=== PATIENT | female | born 1995 | race African-American/Black ===

== ENCOUNTER 2016-10-25 10:51 | Emergency (ER) | payer OTHER ==
[~2016-10-25] VITALS: Ht 170.2 cm; Wt 47.6 kg
[2016-10-25 11:27] LABS: BASO % 1 % (0-3); EOS % 1 % (0-3); HEMATOCRIT 35.9 % (36.0-47.0); HEMOGLOBIN 11.2 g/dL (12.0-15.5); LYMPH # 1.7 x10^3/uL (1.0-4.8); LYMPH % 22 % (24-48); MEAN CORPUSCULAR HEMOGLOBIN 24 pg (25-35); MEAN CORPUSCULAR HGB CONC 31 g/dL (31-37); MEAN CORPUSCULAR VOLUME 77 fL (79-100); MONO % 5 % (0-9); NEUT % 71 % (31-73); PLATELET COUNT 144 x10^3/uL (140-400); RED BLOOD COUNT 4.65 x10^6/uL (3.50-5.40); RED CELL DISTRIBUTION WIDTH 20.5 % (11.5-14.5); WHITE BLOOD COUNT 7.5 x10^3/uL (4.0-11.0)
[2016-10-25 11:43] LABS: CALCIUM 9.1 mg/dL (8.5-10.1); CREATININE 0.7 mg/dL (0.6-1.0); GFR 129.1; POTASSIUM 3.8 mmol/L (3.5-5.1)
[2016-10-25 11:44] LABS: MAGNESIUM 1.9 mg/dL (1.8-2.4)
[2016-10-25 11:45] LABS: NEG OBC SER NEG; POS OBC SER POS
[2016-10-25] MEDS ORDERED: IV NORMAL SALINE 1000ML BAG 1,000 ML IV ONE (11:45)
[2016-10-25 11:55] LABS: CREATINE KINASE 78 U/L (26-192)
[2016-10-25 11:56] LABS: CKMB INDEX 0.6 % (0-4); CKMB MASS < 0.5 ng/mL (0.0-3.6)
--- NOTE | 2016-10-25 12:06 | RAD ---
EXAM: Chest, single view. HISTORY: Dizziness. COMPARISON: 04/14/2008. FINDINGS: A frontal view of the chest is obtained. There is no infiltrate, effusion or pneumothorax. The heart is normal in size. IMPRESSION: No acute pulmonary finding.
[2016-10-25 12:15] LABS: ANISOCYTOSIS MOD; HYPOCHROMIA PRESENT; PLT ESTIMATE ADEQUATE (ADEQUATE)
--- NOTE | 2016-10-25 12:17 | RAD ---
EXAM: Head CT without contrast. HISTORY: Syncope. TECHNIQUE: Computed tomographic images of the head were obtained without contrast. COMPARISON: None. FINDINGS: There is no acute or subacute extra-axial or intraparenchymal hemorrhage. There is no mass effect or midline shift. There is no hydrocephalus. The suggs-white matter differentiation pattern is intact. The visualized portions of the orbits, paranasal sinuses and mastoid air cells are unremarkable. No suspicious calvarial lesion is seen. IMPRESSION: No acute intracranial findings. PQRS Compliance Statement: One or more of the following individualized dose reduction techniques were utilized for this examination: 1. Automated exposure control 2. Adjustment of the mA and/or kV according to patient size 3. Use of iterative reconstruction technique
--- NOTE | 2016-10-25 12:41 | EKG ---
[facility] [address] [place] [address] Test Date: 2016-10-25 Test Time: 11:33:54 Pat Name: VIJYAA TIWARI Department: Room: Gender: F Nutrition Specialist: : 1995 Requested By: GALINA OLSEN Order Number: [id number] Reading MD: Denice Sanches Measurements Intervals [place] Rate: 77 P: 47 AR: 148 QRS: 73 QRSD: 80 T: 52 QT: 350 QTc: 398 Interpretive Statements SINUS RHYTHM NO SPECIFIC ECG ABNORMALITIES RI6.01 No previous ECG available for comparison Electronically Signed On 10-25-2016 19:29:51 CDT by Denice Sanches
[2016-10-25 12:48] LABS: BILIRUBIN,URINE NEGATIVE (NEG); GLUCOSE,URINE NEGATIVE (NEG); NITRITE,URINE NEGATIVE (NEG); PH,URINE 7.5; PROTEIN,URINE NEGATIVE (NEG-TRACE)
[2016-10-25 12:52] LABS: BARBITURATES NEG (NEG); BENZODIAZEPINES NEG (NEG); CANNABINOIDS POS (NEG); COCAINE NEG (NEG); ETHANOL, URINE NEG (NEG); METHADONE NEG (NEG); OPIATES NEG (NEG); PHENCYCLIDINE NEG (NEG)
[2016-10-25 13:03] LABS: BACTERIA,URINE 0 /HPF (0-FEW); RBC,URINE 0 /HPF (0-2); SQUAMOUS EPITHELIAL CELL,UR MOD /LPF
[2016-10-25 14:00] VITALS: BP 94/53
[2016-10-25] MEDS ORDERED: ACET-704 PO (14:17)
--- NOTE | 2016-10-25 14:17 | PHYS DOC ---
Past Medical History Past Medical History: No Pertinent History Past Surgical History: No Surgical History Alcohol Use: None Drug Use: Marijuana Adult General Chief Complaint Chief Complaint: SYNCOPE HPI HPI Patient is a 21 year old female who presents with a headache and a possible syncope episode. Patient states early this morning around midnight she woke up to a bad headache rated at 10 out of 10. Patient denies this pain being the worst in her life. Patient denies any nausea vomiting with this pain. She states she was able to sleep and woke up this morning again went to the cousin' s house and was told she fell face forward and was "out" for 5-10 minutes. Patient states she cannot remember any of these events. She states she hit her head on the ground when she fell. Patient denies any significant previous medical history. She states she is currently under a lot of stress. Denies any suicidal homicidal ideation. Review of Systems Review of Systems Constitutional: Denies fever or chills [] Eyes: Denies change in visual acuity, redness, or eye pain [] HENT: Denies nasal congestion or sore throat [] Respiratory: Denies cough or shortness of breath [] Cardiovascular: No additional information not addressed in HPI [] GI: Denies abdominal pain, nausea, vomiting, bloody stools or diarrhea [] : Denies dysuria or hematuria [] Musculoskeletal: Denies back pain or joint pain [] Integument: Denies rash or skin lesions [] Neurologic: headache, and possible syncope episode Endocrine: Denies polyuria or polydipsia [] psych:stress. Current Medications Current Medications Current Medications Medications (Trade) Dose Ordered Sig/[facility] Start Time Stop Time Status Last Admin Dose Admin Ketorolac Tromethamine (Toradol Im) 60 mg 1X ONCE 10/25/16 15:00 10/25/16 15:01 Sodium Chloride (Iv Sodium Chloride 0.9% 1000ml Bag) 1,000 ml @ 1,000 mls/hr 1X ONCE 10/25/16 11:45 10/25/16 12:44 DC 10/25/16 11:37 1,000 MLS/HR Allergies Allergies Allergies Coded Allergies Type Severity Reaction Last Updated Verified No Known Drug Allergies 10/25/16 No Physical Exam Physical Exam Constitutional: Well developed, well nourished, no acute distress, non-toxic appearance. [] HENT: Normocephalic, atraumatic, bilateral external ears normal, oropharynx moist, no oral exudates, nose normal. [] Eyes: PERRLA, EOMI, conjunctiva normal, no discharge. [] Neck: Normal range of motion, no tenderness, supple, no stridor. [] Cardiovascular:Heart rate regular rhythm, no murmur [] Lungs & Thorax: Bilateral breath sounds clear to auscultation [] Abdomen: Bowel sounds normal, soft, no tenderness, no masses, no pulsatile masses. [] Skin: Warm, dry, no erythema, no rash. [] Back: No tenderness, no CVA tenderness. [] Extremities: No tenderness, no cyanosis, no clubbing, ROM intact, no edema. [] Neurologic: Alert and oriented X 3, normal motor function, normal sensory function, no focal deficits noted. Cranial nerves II through XII intact Psychologic: Affect normal, judgement normal, mood normal. [] Current Patient Data Vital Signs Vital Signs Date Time Temp Pulse Resp B/P Pulse Ox O2 Delivery O2 Flow Rate FiO2 10/25/16 11:00 98.7 98 13 111/60 99 Room Air 98.7 Lab Values Laboratory Tests Test 10/25/16 11:20 10/25/16 12:27 White Blood Count 7.5x10^3/uL (4.0-11.0) Red Blood Count 4.65x10^6/uL (3.50-5.40) Hemoglobin 11.2g/dL (12.0-15.5) L Hematocrit 35.9% (36.0-47.0) L Mean Corpuscular Volume 77fL (79-100) L Mean Corpuscular Hemoglobin 24pg (25-35) L Mean Corpuscular Hemoglobin Concent 31g/dL (31-37) Red Cell Distribution Width 20.5% (11.5-14.5) H Platelet Count 144x10^3/uL (140-400) Neutrophils (%) (Auto) 71% (31-73) Lymphocytes (%) (Auto) 22% (24-48) L Monocytes (%) (Auto) 5% (0-9) Eosinophils (%) (Auto) 1% (0-3) Basophils (%) (Auto) 1% (0-3) Neutrophils # (Auto) 5.3x10^3uL (1.8-7.7) Lymphocytes # (Auto) 1.7x10^3/uL (1.0-4.8) Monocytes # (Auto) 0.4x10^3/uL (0.0-1.1) Eosinophils # (Auto) 0.1x10^3/uL (0.0-0.7) Basophils # (Auto) 0.0x10^3/uL (0.0-0.2) Platelet Estimate Adequate (ADEQUATE) Giant Platelets Present Hypochromasia Present Poikilocytosis Anisocytosis Mod Sodium Level 140mmol/L (136-145) Potassium Level 3.8mmol/L (3.5-5.1) Chloride Level 104mmol/L (98-107) Carbon Dioxide Level 25mmol/L (21-32) Anion Gap 11 (6-14) Blood Urea Nitrogen 7mg/dL (7-20) Creatinine 0.7mg/dL (0.6-1.0) Estimated GFR (Cockcroft-Gault) 129.1 Glucose Level 95mg/dL (70-99) Calcium Level 9.1mg/dL (8.5-10.1) Magnesium Level 1.9mg/dL (1.8-2.4) Creatine Kinase 78U/L (26-192) Creatine Kinase MB (Mass) < 0.5ng/mL (0.0-3.6) Creatine Kinase MB Relative Index 0.6% (0-4) Troponin I Quantitative < 0.017ng/mL (0.000-0.055) Serum Test, Qualitative Negative (NEG) Ethyl Alcohol Level < 10mg/dL (0-10) Urine Collection Type Void Urine Color Yellow Urine Clarity Clear Urine pH 7.5 Urine Specific [place] 1.020 Urine Protein Negativemg/dL (NEG-TRACE) Urine Glucose (UA) Negativemg/dL (NEG) Urine Ketones (Stick) Negativemg/dL (NEG) Urine Blood Negative (NEG) Urine Nitrite Negative (NEG) Urine Bilirubin Negative (NEG) Urine Urobilinogen Dipstick 1.0mg/dL (0.2 mg/dL) Urine Leukocyte Esterase Trace (NEG) Urine RBC 0/HPF (0-2) Urine WBC 1-4/HPF (0-4) Urine Squamous Epithelial Cells Mod/LPF Urine Bacteria 0/HPF (0-FEW) Urine Mucus Mod/LPF Urine Opiates Screen Neg (NEG) Urine Methadone Screen Neg (NEG) Urine Barbiturates Neg (NEG) Urine Phencyclidine Screen Neg (NEG) Urine Amphetamine/Methamphetamine Neg (NEG) Urine Benzodiazepines Screen Neg (NEG) Urine Cocaine Screen Neg (NEG) Urine Cannabinoids Screen Pos (NEG) Urine Ethyl Alcohol Neg (NEG) Laboratory Tests 10/25/16 11:20 Laboratory Tests 10/25/16 11:20 EKG EKG [] Radiology/Procedures Radiology/Procedures [] Course & Med Decision Making Course & Med Decision Making Pertinent Labs and Imaging studies reviewed. (See chart for details) Patient is in the ED to be evaluated for headache and a possible syncope episode. Her labs are negative. CT of the head is negative for any acute findings. Chest x-ray is negative for any acute findings. She states she is under a lot of stress which I recommended she follows up with a counselor . She was discharged with Tylenol 3 for her headache. She was provided a PCP for follow-up. She was provided return precautions and discharged in stable condition. Dragon Disclaimer Dragon Disclaimer This electronic medical record was generated, in whole or in part, using a voice recognition dictation system. Departure Departure Impression: Primary Impression: Headache Additional Impressions: Syncope Marijuana use Stress Disposition: 01 HOME, SELF-CARE Condition: STABLE Referrals: NO PCP (PCP) Follow-up with the doctor from the list provided as soon as you can Patient Instructions: General Headache Without Cause, Syncope Additional Instructions: You were seen for headache and possible syncope episode and stress. Establish care with a primary care doctor and follow-up. Follow-up with [facility] for stress. Come back to the ED if symptoms worsen. Scripts Acetaminophen With Codeine (Tylenol With Codeine #3 Tablet)1 Each Tablet1 Tab PO PRN Q6HRS PRN PAIN #20 TAB Prov:GALINA OLSEN APRN 10/25/16 Problem Qualifiers Primary Impression: Headache Headache type: unspecified Headache chronicity pattern: acute headache Intractability: not intractable Qualified Code: R51 - Headache Additional Impressions: Syncope Syncope type: unspecified Qualified Code: R55 - Syncope and collapse GALINA OLSEN APRN Oct 25, 2016 14:17
[2016-10-25] MEDS ORDERED: KETOROLAC TROMETHAMINE 60 MG/2 ML INJ. IM ONE (15:00)
== END 2016-10-25 14:20 | disposition home or self-care (01) ==
LOC: ER 10:51
DX: R51 Headache (principal); R55 Syncope and collapse; F12.10 Cannabis abuse, uncomplicated; F43.9 Reaction to severe stress, unspecified
CPT/HCPCS: 36415; 70450; 71010; 80048; 80305; 80320; 81001; 82553; 83735; 84484; 84703; 85007; 85027; 93005; 96360; 99285; J7030; G0480; G0481

== ENCOUNTER 2018-04-13 18:33 | Inpatient (IN) | payer SELFPAY ==
[~2018-04-13] VITALS: Ht 170.2 cm; Wt 44.0 kg
[~2018-04-13 18:33] MED LIST: ACET-704 PO
[2018-04-13] MEDS ORDERED: IV NORMAL SALINE 1000ML BAG 1,000 ML IV ONE ×2 (18:45→20:45)
[2018-04-13] MEDS ORDERED: diphenhydrAMINE 50 MG/ML VIAL IVP ONE (19:00)
[2018-04-13] MEDS ORDERED: METOCLOPRAMIDE HCL 10 MG/2 ML VIAL. IV ONE (19:00)
[2018-04-13] MEDS ORDERED: DEXAMETHASONE SOD PHOS 20 MG/5 ML VIAL. IV ONE (19:00)
--- NOTE | 2018-04-13 19:07 | PHYS DOC ---
Past Medical History Past Medical History: No Pertinent History Past Surgical History: No Surgical History Alcohol Use: None Drug Use: Marijuana Adult General Chief Complaint Chief Complaint: HEADACHE HPI HPI Patient is a 22 year old female who presents with generalized weakness and headache. Patient notes about 45 minutes ago she was talking with a friend at home when she started feeling weak and lightheaded. Patient denies syncope, fall , or hitting her head. Patient notes she feels generalized weakness predominantly in her bilateral lower extremities. Patient notes she has had a moderate in severity bilateral throbbing frontal headache since about noon today. Patient notes this headache was gradual in onset and similar to the headache she has had in the past. Patient notes she did have some nausea since the onset of symptoms. Patient notes she has not had any fevers/chills, recent illness, vomiting, diarrhea, abdominal pain, chest pain, shortness of breath. Patient notes she does not think she could be . Patient notes she was not outside for any extended period of time today and denies any alcohol or drug use. Patient notes she has had a normal appetite and drank a normal amount of fluids. Review of Systems Review of Systems Constitutional: Denies fever or chills [] Eyes: Denies change in visual acuity, redness, or eye pain [] HENT: Denies nasal congestion or sore throat [] Respiratory: Denies cough or shortness of breath [] Cardiovascular: Denies chest pain or palpitations [] GI: Denies abdominal pain, vomiting, bloody stools or diarrhea [] : Denies dysuria or hematuria [] Musculoskeletal: Denies back pain, notes chronic knee joint pain [] Integument: Denies rash or skin lesions [] Neurologic: Denies headache. Denies focal weakness or sensory changes [] systems were reviewed and found to be within normal limits, except as documented in this note. Family History Family History Noncontributory Current Medications Current Medications Current Medications Medications (Trade) Dose Ordered Sig/Kaitlyn Start Time Stop Time Status Last Admin Dose Admin Dexamethasone Sodium Phosphate (Decadron) 10 mg 1X ONCE 04/13/18 19:00 04/13/18 19:01 DC 04/13/18 19:56 10 MG Diphenhydramine HCl (Benadryl) 25 mg 1X ONCE 04/13/18 19:00 04/13/18 19:01 DC 04/13/18 19:53 25 MG Metoclopramide HCl (Reglan Vial) 10 mg 1X ONCE 04/13/18 19:00 04/13/18 19:01 DC 04/13/18 19:54 10 MG Sodium Chloride 1,000 ml @ 1,000 mls/hr 1X ONCE 04/13/18 18:45 04/13/18 19:44 DC 04/13/18 19:44 1,000 MLS/HR Allergies Allergies Allergies Coded Allergies Type Severity Reaction Last Updated Verified No Known Drug Allergies 10/25/16 No Physical Exam Physical Exam Constitutional: Well developed, well nourished, no acute distress, non-toxic appearance. [] HENT: Normocephalic, atraumatic, bilateral external ears normal, oropharynx dry , no oral exudates, nose normal. [] Eyes: PERRL, EOMI, conjunctiva normal, no discharge. [] Neck: Normal range of motion, no tenderness, supple, no meningismus. [] Cardiovascular:Heart rate regular rhythm, no murmur [] Lungs & Thorax: Bilateral breath sounds clear to auscultation [] Abdomen: Bowel sounds normal, soft, nondistended, no tenderness [] Skin: Warm, dry, no erythema, no rash. [] Back: No tenderness, no CVA tenderness. [] Extremities: Chronic tenderness in b/l anterior knees, ROM intact, no edema. [] Neurologic: Alert and oriented X 3, +3/5 muscle strength in bilateral lower extremities, +5/5 muscle strength bilateral upper extremities, normal sensory function. [] Psychologic: Affect subdued, judgement normal, mood normal. [] Current Patient Data Vital Signs Vital Signs Date Time Temp Pulse Resp B/P (MAP) Pulse Ox O2 Delivery O2 Flow Rate FiO2 04/13/18 19:50 70 16 99 04/13/18 18:50 98.4 111/67 (82) Room Air 98.4 Lab Values Laboratory Tests Test 04/13/18 19:05 04/13/18 19:45 04/13/18 20:00 White Blood Count 7.8 x10^3/uL (4.0-11.0) Red Blood Count 4.41 x10^6/uL (3.50-5.40) Hemoglobin 10.4 g/dL (12.0-15.5) L Hematocrit 32.3 % (36.0-47.0) L Mean Corpuscular Volume 73 fL (79-100) L Mean Corpuscular Hemoglobin 24 pg (25-35) L Mean Corpuscular Hemoglobin Concent 32 g/dL (31-37) Red Cell Distribution Width 21.9 % (11.5-14.5) H Platelet Count 199 x10^3/uL (140-400) Neutrophils (%) (Auto) 72 % (31-73) Lymphocytes (%) (Auto) 22 % (24-48) L Monocytes (%) (Auto) 6 % (0-9) Eosinophils (%) (Auto) 0 % (0-3) Basophils (%) (Auto) 0 % (0-3) Neutrophils # (Auto) 5.6 x10^3uL (1.8-7.7) Lymphocytes # (Auto) 1.7 x10^3/uL (1.0-4.8) Monocytes # (Auto) 0.5 x10^3/uL (0.0-1.1) Eosinophils # (Auto) 0.0 x10^3/uL (0.0-0.7) Basophils # (Auto) 0.0 x10^3/uL (0.0-0.2) Platelet Estimate Adequate (ADEQUATE) Hypochromasia Slight Microcytosis Slight Sodium Level 139 mmol/L (136-145) Potassium Level 3.3 mmol/L (3.5-5.1) L Chloride Level 102 mmol/L (98-107) Carbon Dioxide Level 25 mmol/L (21-32) Anion Gap 12 (6-14) Blood Urea Nitrogen 9 mg/dL (7-20) Creatinine 0.7 mg/dL (0.6-1.0) Estimated GFR (Cockcroft-Gault) 127.8 BUN/Creatinine Ratio 13 (6-20) Glucose Level 80 mg/dL (70-99) Calcium Level 9.3 mg/dL (8.5-10.1) Magnesium Level 2.3 mg/dL (1.8-2.4) Total Bilirubin 0.4 mg/dL (0.2-1.0) Aspartate Amino Transferase (AST) 34 U/L (15-37) Alanine Aminotransferase (ALT) 19 U/L (14-59) Alkaline Phosphatase 68 U/L (46-116) Creatine Kinase 1680 U/L (26-192) H Troponin I Quantitative < 0.017 ng/mL (0.000-0.055) Total Protein 8.5 g/dL (6.4-8.2) H Albumin 4.0 g/dL (3.4-5.0) Albumin/Globulin Ratio 0.9 (1.0-1.7) L Ethyl Alcohol Level < 10 mg/dL (0-10) Urine Collection Type Unknown Urine Color Yellow Urine Clarity Clear Urine pH 5.5 Urine Specific [place] >=1.030 Urine Protein 30 mg/dL (NEG-TRACE) Urine Glucose (UA) Negative mg/dL (NEG) Urine Ketones (Stick) 40 mg/dL (NEG) Urine Blood Negative (NEG) Urine Nitrite Negative (NEG) Urine Bilirubin Small (NEG) Urine Urobilinogen Dipstick 1.0 mg/dL (0.2 mg/dL) Urine Leukocyte Esterase Small (NEG) Urine RBC Rare /HPF (0-2) Urine WBC 1-4 /HPF (0-4) Urine Squamous Epithelial Cells Many /LPF Urine Bacteria Few /HPF (0-FEW) Urine Mucus Marked /LPF Urine Opiates Screen Neg (NEG) Urine Methadone Screen Neg (NEG) Urine Barbiturates Neg (NEG) Urine Phencyclidine Screen Neg (NEG) Urine Amphetamine/Methamphetamine Neg (NEG) Urine Benzodiazepines Screen Neg (NEG) Urine Cocaine Screen Neg (NEG) Urine Cannabinoids Screen Pos (NEG) Urine Ethyl Alcohol Neg (NEG) POC Urine HCG, Qualitative Hcg negative (Negative) Laboratory Tests 04/13/18 19:05 Laboratory Tests 04/13/18 19:05 Microbiology 04/13/18 Urine Culture - Final, Complete 04/13/18 Urine Culture Result 1 (DAVEY) - Final, Complete 04/13/18 Urine Culture Result 2 (DAVEY) - Final, Complete EKG EKG Sinus rhythm normal axis mild J-point elevation in anterior leads, unchanged from prior EKG (10/25/16). No acute ischemic changes noted. Rate 87, QRS 74, QTc 393[] Radiology/Procedures Radiology/Procedures []PROCEDURE: CT HEAD WO CONTRAST CT scan of the head without contrast 04/13/2018 Clinical History: Headache and weakness. Technique: Unenhanced, contiguous, 5 mm axial sections were obtained through the head. One or more of the following individualized dose reduction techniques were utilized for this study: 1. Automated exposure control. 2. Adjustment of the mA and/or kV according to patient size. 3. Use of iterative reconstruction technique. Findings: Comparison study is dated 10/25/2016. The ventricles and sulci are within normal limits in size and configuration. No focal area of abnormal attenuation is seen involving the brain parenchyma. No extra-axial fluid collection is seen. No skull fracture is seen. Impression: Negative study. Electronically signed by: Kartik Sagastume MD (04/13/2018 8:35 PM) [facility] Course & Med Decision Making Course & Med Decision Making 22-year-old female presenting with acute onset generalized weakness, lightheadedness, and headache. Headache was gradual in onset, bilateral and throbbing. Patient denies alcohol or drug use. Patient given Decadron, Benadryl , Reglan with relief of headache. Patient given 2 L normal saline bolus. Labs collected and evaluated. Significant findings include elevated creatinine kinase at 1680, ketones 40 on UA, hypokalemia 3.3. Labs suspicious for rhabdomyolysis cannot rule out neurologic cause for weakness. CT head obtained and does not show any intracranial abnormality. Patient requiring admission for further evaluation and treatment. Discussed with Dr. Ko who is in agreement with admission. Discussed findings and plan with patient, who acknowledge understanding and agreement. [] Dragon Disclaimer Dragon Disclaimer This electronic medical record was generated, in whole or in part, using a voice recognition dictation system. Departure Departure Impression: Primary Impression: Bilateral leg weakness Additional Impressions: Elevated creatine kinase Headache Disposition: ADMITTED INPATIENT Admitting Physician: Umu Ko Condition: STABLE Referrals: NO PCP (PCP) Scripts Ferrous Sulfate (FERROUS SULFATE) 325 Mg Tablet 1 TAB PO DAILY, #30 TAB 1 Refill Prov: UMU KO MD 04/15/18 Cyanocobalamin/Fa/Pyridoxine (FOLBIC TABLET) 1 Each Tablet 1 TAB PO DAILY, #100 TAB Prov: UMU KO MD 04/15/18 Gabapentin (GABAPENTIN) 300 Mg Capsule 300 MG PO BID, #60 CAP Prov: UMU KO MD 04/15/18 Problem Qualifiers Additional Impressions: Headache Headache type: unspecified Headache chronicity pattern: unspecified pattern Intractability: not intractable Qualified Codes: R51 - Headache LARISA WALL DO Apr 13, 2018 19:07
[2018-04-13 19:15] LABS: BASO % 0 % (0-3); EOS % 0 % (0-3); HEMATOCRIT 32.3 % (36.0-47.0); HEMOGLOBIN 10.4 g/dL (12.0-15.5); LYMPH # 1.7 x10^3/uL (1.0-4.8); LYMPH % 22 % (24-48); MEAN CORPUSCULAR HEMOGLOBIN 24 pg (25-35); MEAN CORPUSCULAR HGB CONC 32 g/dL (31-37); MEAN CORPUSCULAR VOLUME 73 fL (79-100); MONO # 0.5 x10^3/uL (0.0-1.1); MONO % 6 % (0-9); NEUT # 5.6 x10^3uL (1.8-7.7); NEUT % 72 % (31-73); PLATELET COUNT 199 x10^3/uL (140-400); RED BLOOD COUNT 4.41 x10^6/uL (3.50-5.40); RED CELL DISTRIBUTION WIDTH 21.9 % (11.5-14.5); WHITE BLOOD COUNT 7.8 x10^3/uL (4.0-11.0)
[2018-04-13 19:30] LABS: CALCIUM 9.3 mg/dL (8.5-10.1); CREATININE 0.7 mg/dL (0.6-1.0); GFR 127.8; HYPOCHROMIA SLIGHT; MICROCYTOSIS SLIGHT; PLT ESTIMATE ADEQUATE (ADEQUATE); POTASSIUM 3.3 mmol/L (3.5-5.1)
[2018-04-13 19:45] LABS: ALBUMIN/GLOBULIN RATIO 0.9 (1.0-1.7); MAGNESIUM 2.3 mg/dL (1.8-2.4); TOTAL BILIRUBIN 0.4 mg/dL (0.2-1.0); TOTAL PROTEIN 8.5 g/dL (6.4-8.2)
--- NOTE | 2018-04-13 19:54 | EKG ---
[facility] [address] [place] [address] Test Date: 2018-04-13 Test Time: 19:21:44 Pat Name: VIJAYA TIWARI Department: Room: Gender: Female Provider Contracting Consultant: : 1995 Requested By: LARISA WALL Order Number: [id number] Reading MD: Say Lopez Measurements Intervals [place] Rate: 77 P: 58 [place]: 160 QRS: 75 QRSD: 74 T: 60 QT: 346 QTc: 393 Interpretive Statements SINUS RHYTHM QRS(T) CONTOUR ABNORMALITY CONSIDER ANTEROLATERAL MYOCARDIAL DAMAGE POSSIBLY ABNORMAL ECG RI6.01 Electronically Signed On 04-19-2018 10:16:50 CDT by Say Lopez
[2018-04-13 20:08] LABS: BILIRUBIN,URINE SMALL (NEG); COLOR,URINE YELLOW; NITRITE,URINE NEGATIVE (NEG); PH,URINE 5.5; PROTEIN,URINE 30 mg/dL (NEG-TRACE)
[2018-04-13 20:12] LABS: CLARITY,URINE CLEAR
[2018-04-13 20:14] LABS: AMPHETAMINE/METHAMPHETAMINE NEG (NEG); BARBITURATES NEG (NEG); BENZODIAZEPINES NEG (NEG); CANNABINOIDS POS (NEG); COCAINE NEG (NEG); METHADONE NEG (NEG); OPIATES NEG (NEG); PHENCYCLIDINE NEG (NEG)
[2018-04-13 20:16] LABS: BACTERIA,URINE FEW /HPF (0-FEW); RBC,URINE RARE /HPF (0-2); SQUAMOUS EPITHELIAL CELL,UR MANY /LPF
--- NOTE | 2018-04-13 20:39 | RAD ---
CT scan of the head without contrast 04/13/2018 Clinical History: Headache and weakness. Technique: Unenhanced, contiguous, 5 mm axial sections were obtained through the head. One or more of the following individualized dose reduction techniques were utilized for this study: 1. Automated exposure control. 2. Adjustment of the mA and/or kV according to patient size. 3. Use of iterative reconstruction technique. Findings: Comparison study is dated 10/25/2016. The ventricles and sulci are within normal limits in size and configuration. No focal area of abnormal attenuation is seen involving the brain parenchyma. No extra-axial fluid collection is seen. No skull fracture is seen. Impression: Negative study. Electronically signed by: Kartik Sagastume MD (04/13/2018 8:35 PM) [facility]
[2018-04-13] MEDS ORDERED: ACETAMINOPHEN 325 MG TABLET. PO PRN (20:45)
[2018-04-13] MEDS ORDERED: ONDANSETRON PF 4 MG/2 ML VIAL. IV PRN (20:45)
[2018-04-14 03:00] VITALS: BP 90/53
[2018-04-14 07:00] VITALS: BP 109/66
[2018-04-14] MEDS ORDERED: POTASSIUM CHLORIDE 20 MEQ TABLET.ER. PO ONE (08:15)
--- NOTE | 2018-04-14 08:40 | PDOC1 ---
History and Physical Date of Admission Date of Admission DATE: 04/14/18 TIME: 08:32 Source Source: Chart review, Patient History of Present Illness History of Present Illness Ms. Valadez is a 22 year old female admit with generalized weakness overnight and leg pain, sudden onset of weakness, bilateral legs and symmetrical, could walk some with assist last night, and now cannot get out of bed. had difficulty initiating transfer. Leg pain to knees, she reports this is not new, but some tingling and pain to her lower legs. she feels onset in gradual marked headache was described in ER, she did not mention today her last immunization was 7 months ago Past Medical History Cardiovascular: No pertinent hx Pulmonary: No pertinent hx Heme/Onc: No pertinent hx Renal/: No pertinent hx Dermatology: No pertinent hx Family History Family History: No Significant Social History Smoke: No ALCOHOL: none Drugs: Marijuana Current Problem List Problem List Problems Medical Problems: (1) Bilateral leg weakness Status: Acute (2) Elevated creatine kinase Status: Acute (3) Headache Status: Acute Current Medications Current Medications Current Medications Sodium Chloride 1,000 ml @ 1,000 mls/hr 1X ONCE IV Last administered on at 19:44; Start 04/13/18 at 18:45; Stop 04/13/18 at 19:44; Status DC Dexamethasone Sodium Phosphate (Decadron) 10 mg 1X ONCE IV Last administered on 04/13/18at 19:56; Start 04/13/18 at 19:00; Stop 04/13/18 at 19:01; Status DC Metoclopramide HCl (Reglan Vial) 10 mg 1X ONCE IV Last administered on at 19:54; Start 04/13/18 at 19:00; Stop 04/13/18 at 19:01; Status DC Diphenhydramine HCl (Benadryl) 25 mg 1X ONCE IVP Last administered on at 19:53; Start 04/13/18 at 19:00; Stop 04/13/18 at 19:01; Status DC Sodium Chloride 1,000 ml @ 1,000 mls/hr 1X ONCE IV Last administered on at 20:52; Start 04/13/18 at 20:45; Stop 04/13/18 at 21:44; Status DC Ondansetron HCl (Zofran) 4 mg PRN Q8HRS PRN IV NAUSEA/VOMITING; Start 04/13/18 at 20:45; Stop 04/14/18 at 20:44 Acetaminophen (Tylenol) 650 mg PRN Q4HRS PRN PO FEVER; Start 04/13/18 at 20:45 ; Stop 04/14/18 at 20:44 Potassium Chloride (Klor-Con) 40 meq 1X ONCE PO ; Start 04/14/18 at 08:15; Stop 04/14/18 at 08:16; Status DC Sodium Chloride 1,000 ml @ 125 mls/hr Q8H IV ; Start 04/14/18 at 08:30 Active Scripts Active Allergies Allergies: Coded Allergies: No Known Drug Allergies (Unverified , 10/25/16) ROS General: YES: Fatigue; No: Chills, Night Sweats, Malaise, Appetite, Other PSYCHOLOGICAL ROS: No: Anxiety, Behavioral Disorder, Concentration difficultie , Decreased libido, Depression, Disorientation, Hallucinations, Hostility, Irritablity, Memory difficulties, Mood Swings, Obsessive thoughts, Physical abuse, Sexual abuse, Sleep disturbances, Suicidal ideation, Other Eyes: No Blurry vision, No Decreased vision, No Double vision, No Dry eyes, No Excessive tearing, No Eye Pain, No Itchy Eyes, No Loss of vision, No Photophobia , No Scotomata, No Uses contacts, No Uses glasses, No Other HEENT: No: Heacaches, Visual Changes, Hearing change, Nasal congestion, Nasal discharge, Oral lesions, Sinus pain, Sore Throat, Epistaxis, Sneezing, Snoring, Tinnitus, Vertigo, Vocal changes, Other Respiratory: No: Cough, Hemoptysis, Orthopnea, Pleuritic Pain, Shortness of breath, SOB with excertion, Sputum Changes, Stridor, Tachypnea, Wheezing, Other Cardiovascular: No Chest Pain, No Palpitations, No Orthopnea, No Paroxysmal Noc. Dyspnea, No Edema, No Lt Headedness, No Other Gastrointestinal: No Nausea, No Vomiting, No Abdominal Pain, No Diarrhea, No Constipation, No Melena, No Hematochezia, No Other Musculoskeletal: Yes Gait Disturbance, Yes Joint Stiffness (knees), Yes Joint Swelling, Yes Muscular Weakness, Yes Pain In: (knees, ); No Joint Pain, No Muscle Pain, No Swelling In:, No Other Neurological: Yes Gait Disturbance; No Behavorial Changes, No Bowel/Bladder ControlChng, No Confusion, No Dizziness, No Headaches, No Impaired Coord/balance, No Memory Loss, No Numbness/ Tingling, No Seizures, No Speech Problems, No Tremors, No Visual Changes, No Weakness, No Other Skin: No Dry Skin, No Eczema, No Hair Changes, No Lumps, No Mole Changes, No Mottling, No Nail Changes, No Pruritus, No Rash, No Skin Lesion Changes, No Other, No Acne Physical Exam General: Alert, Oriented X3, Cooperative, mild distress HEENT: Atraumatic, EOMI, Mucous membr. moist/pink Lungs: Normal air movement Heart: S1S2, no gallops, no murmurs Abdomen: Normal bowel sounds, Soft PELVIC: Nml ext uterus Extremities: No clubbing, No cyanosis, No edema Skin: No rashes, No significant lesion Neuro: Normal speech, Sensation intact, Other (knee pain limits eval for reflexes ankle, ankle jerk maybe 1 beat, seems diminished, normal sensation to feet, to cold, pain and light touch, very limited leg strength, cannot stand) Psych/Mental Status: Mental status NL, Mood NL Vitals Vitals Vital Signs Date Time Temp Pulse Resp B/P (MAP) Pulse Ox O2 Delivery O2 Flow Rate FiO2 04/14/18 03:00 98.3 61 18 90/53 (65) 100 Room Air 98.3 Labs Labs Laboratory Tests Test 04/13/18 19:05 04/13/18 19:45 04/13/18 20:00 White Blood Count 7.8 x10^3/uL (4.0-11.0) Red Blood Count 4.41 x10^6/uL (3.50-5.40) Hemoglobin 10.4 g/dL (12.0-15.5) Hematocrit 32.3 % (36.0-47.0) Mean Corpuscular Volume 73 fL (79-100) Mean Corpuscular Hemoglobin 24 pg (25-35) Mean Corpuscular Hemoglobin Concent 32 g/dL (31-37) Red Cell Distribution Width 21.9 % (11.5-14.5) Platelet Count 199 x10^3/uL (140-400) Neutrophils (%) (Auto) 72 % (31-73) Lymphocytes (%) (Auto) 22 % (24-48) Monocytes (%) (Auto) 6 % (0-9) Eosinophils (%) (Auto) 0 % (0-3) Basophils (%) (Auto) 0 % (0-3) Neutrophils # (Auto) 5.6 x10^3uL (1.8-7.7) Lymphocytes # (Auto) 1.7 x10^3/uL (1.0-4.8) Monocytes # (Auto) 0.5 x10^3/uL (0.0-1.1) Eosinophils # (Auto) 0.0 x10^3/uL (0.0-0.7) Basophils # (Auto) 0.0 x10^3/uL (0.0-0.2) Platelet Estimate Adequate (ADEQUATE) Hypochromasia Slight Microcytosis Slight Sodium Level 139 mmol/L (136-145) Potassium Level 3.3 mmol/L (3.5-5.1) Chloride Level 102 mmol/L (98-107) Carbon Dioxide Level 25 mmol/L (21-32) Anion Gap 12 (6-14) Blood Urea Nitrogen 9 mg/dL (7-20) Creatinine 0.7 mg/dL (0.6-1.0) Estimated GFR (Cockcroft-Gault) 127.8 BUN/Creatinine Ratio 13 (6-20) Glucose Level 80 mg/dL (70-99) Calcium Level 9.3 mg/dL (8.5-10.1) Magnesium Level 2.3 mg/dL (1.8-2.4) Total Bilirubin 0.4 mg/dL (0.2-1.0) Aspartate Amino Transf (AST/SGOT) 34 U/L (15-37) Alanine Aminotransferase (ALT/SGPT) 19 U/L (14-59) Alkaline Phosphatase 68 U/L (46-116) Creatine Kinase 1680 U/L (26-192) Troponin I Quantitative < 0.017 ng/mL (0.000-0.055) Total Protein 8.5 g/dL (6.4-8.2) Albumin 4.0 g/dL (3.4-5.0) Albumin/Globulin Ratio 0.9 (1.0-1.7) Ethyl Alcohol Level < 10 mg/dL (0-10) Urine Collection Type Unknown Urine Color Yellow Urine Clarity Clear Urine pH 5.5 Urine Specific [place] >=1.030 Urine Protein 30 mg/dL (NEG-TRACE) Urine Glucose (UA) Negative mg/dL (NEG) Urine Ketones (Stick) 40 mg/dL (NEG) Urine Blood Negative (NEG) Urine Nitrite Negative (NEG) Urine Bilirubin Small (NEG) Urine Urobilinogen Dipstick 1.0 mg/dL (0.2 mg/dL) Urine Leukocyte Esterase Small (NEG) Urine RBC Rare /HPF (0-2) Urine WBC 1-4 /HPF (0-4) Urine Squamous Epithelial Cells Many /LPF Urine Bacteria Few /HPF (0-FEW) Urine Mucus Marked /LPF Urine Opiates Screen Neg (NEG) Urine Methadone Screen Neg (NEG) Urine Barbiturates Neg (NEG) Urine Phencyclidine Screen Neg (NEG) Urine Amphetamine/Methamphetamine Neg (NEG) Urine Benzodiazepines Screen Neg (NEG) Urine Cocaine Screen Neg (NEG) Urine Cannabinoids Screen Pos (NEG) Urine Ethyl Alcohol Neg (NEG) Bedside Urine HCG, Qualitative Hcg negative (Negative) Laboratory Tests Test 04/13/18 19:05 04/13/18 19:45 04/13/18 20:00 White Blood Count 7.8 x10^3/uL (4.0-11.0) Red Blood Count 4.41 x10^6/uL (3.50-5.40) Hemoglobin 10.4 g/dL (12.0-15.5) Hematocrit 32.3 % (36.0-47.0) Mean Corpuscular Volume 73 fL (79-100) Mean Corpuscular Hemoglobin 24 pg (25-35) Mean Corpuscular Hemoglobin Concent 32 g/dL (31-37) Red Cell Distribution Width 21.9 % (11.5-14.5) Platelet Count 199 x10^3/uL (140-400) Neutrophils (%) (Auto) 72 % (31-73) Lymphocytes (%) (Auto) 22 % (24-48) Monocytes (%) (Auto) 6 % (0-9) Eosinophils (%) (Auto) 0 % (0-3) Basophils (%) (Auto) 0 % (0-3) Neutrophils # (Auto) 5.6 x10^3uL (1.8-7.7) Lymphocytes # (Auto) 1.7 x10^3/uL (1.0-4.8) Monocytes # (Auto) 0.5 x10^3/uL (0.0-1.1) Eosinophils # (Auto) 0.0 x10^3/uL (0.0-0.7) Basophils # (Auto) 0.0 x10^3/uL (0.0-0.2) Platelet Estimate Adequate (ADEQUATE) Hypochromasia Slight Microcytosis Slight Sodium Level 139 mmol/L (136-145) Potassium Level 3.3 mmol/L (3.5-5.1) Chloride Level 102 mmol/L (98-107) Carbon Dioxide Level 25 mmol/L (21-32) Anion Gap 12 (6-14) Blood Urea Nitrogen 9 mg/dL (7-20) Creatinine 0.7 mg/dL (0.6-1.0) Estimated GFR (Cockcroft-Gault) 127.8 BUN/Creatinine Ratio 13 (6-20) Glucose Level 80 mg/dL (70-99) Calcium Level 9.3 mg/dL (8.5-10.1) Magnesium Level 2.3 mg/dL (1.8-2.4) Total Bilirubin 0.4 mg/dL (0.2-1.0) Aspartate Amino Transf (AST/SGOT) 34 U/L (15-37) Alanine Aminotransferase (ALT/SGPT) 19 U/L (14-59) Alkaline Phosphatase 68 U/L (46-116) Creatine Kinase 1680 U/L (26-192) Troponin I Quantitative < 0.017 ng/mL (0.000-0.055) Total Protein 8.5 g/dL (6.4-8.2) Albumin 4.0 g/dL (3.4-5.0) Albumin/Globulin Ratio 0.9 (1.0-1.7) Ethyl Alcohol Level < 10 mg/dL (0-10) Urine Collection Type Unknown Urine Color Yellow Urine Clarity Clear Urine pH 5.5 Urine Specific [place] >=1.030 Urine Protein 30 mg/dL (NEG-TRACE) Urine Glucose (UA) Negative mg/dL (NEG) Urine Ketones (Stick) 40 mg/dL (NEG) Urine Blood Negative (NEG) Urine Nitrite Negative (NEG) Urine Bilirubin Small (NEG) Urine Urobilinogen Dipstick 1.0 mg/dL (0.2 mg/dL) Urine Leukocyte Esterase Small (NEG) Urine RBC Rare /HPF (0-2) Urine WBC 1-4 /HPF (0-4) Urine Squamous Epithelial Cells Many /LPF Urine Bacteria Few /HPF (0-FEW) Urine Mucus Marked /LPF Urine Opiates Screen Neg (NEG) Urine Methadone Screen Neg (NEG) Urine Barbiturates Neg (NEG) Urine Phencyclidine Screen Neg (NEG) Urine Amphetamine/Methamphetamine Neg (NEG) Urine Benzodiazepines Screen Neg (NEG) Urine Cocaine Screen Neg (NEG) Urine Cannabinoids Screen Pos (NEG) Urine Ethyl Alcohol Neg (NEG) Bedside Urine HCG, Qualitative Hcg negative (Negative) VTE Prophylaxis Ordered VTE Prophylaxis Devices: No VTE Pharmacological Prophylaxi: Yes Assessment/Plan Assessment/Plan new bilateral leg tingling and weakness sudden onset yesterday, and appears weaker on exam than she described to be last night Admit, Urgent neuro consult new bilateral polyneuropathy with parathesia and pain to legs - symmetrical MRI spine, w.u AIDP, check viral x2, B1 and B12 vitamina, MATTHIEU KO MD Apr 14, 2018 08:40
[2018-04-14 09:47] LABS: C-REACTIVE PROTEIN 1.5 mg/L (0-3.3)
[2018-04-14] MEDS: IV NORMAL SALINE 1000ML BAG 1,000 ML IV SCH ×3 (10:15→23:14)
[2018-04-14 11:00] VITALS: BP 95/59
[2018-04-14] MEDS: ENOXAPARIN 40 MG/0.4 ML SYRINGE. SQ SCH (11:00)
[2018-04-14] MEDS ORDERED: GADOBUTROL 7.5 MMOL/7.5 ML VIAL IV ONE (12:45)
--- NOTE | 2018-04-14 14:18 | RAD ---
EXAM: Brain MRI with and without contrast. HISTORY: Headaches and lower extremity weakness. TECHNIQUE: Multiplanar, multisequence magnetic resonance imaging of the brain was performed prior to and following the administration of 4 cc Gadavist intravenous contrast. COMPARISON: Head CT dated 04/13/2018. FINDINGS: There is no restricted diffusion to suggest acute or subacute infarction. There is no susceptibility effect to suggest hemorrhage. There is no mass effect or midline shift. There is no hydrocephalus. No suspicious white matter lesion is seen. No enhancing lesion is seen. The orbits are unremarkable. There is mild paranasal sinus mucosal thickening. There is a suspected small mucous retention cyst within the posterior left nasopharynx. The location of this lesion does not favor a Tornwaldt cyst. The mastoid air cells are clear. There are normal flow voids within the cerebral vessels. IMPRESSION: No acute intracranial finding. Electronically signed by: Dalia Ptetit MD (04/14/2018 2:14 PM) [id number]
--- NOTE | 2018-04-14 14:24 | RAD ---
MRI Lumbar Spine without and with contrast History: New bilateral leg pain and weakness, tingling in the lower legs Technique: Multiplanar, multi sequential pre and postcontrast MR imaging was performed of the lumbar spine. Contrast: None Comparison: None Findings: Lumbar vertebral body stature and AP alignment are preserved. Intervertebral disc spaces are preserved. Conus terminates at L1. There is no nodular enhancement of the conus or cauda equina. There is no significant spinal stenosis or neural foramina compromise at any level of the lumbar spine. There is no focal posterior disc abnormality of the lumbar spine. Impression: 1. There is no significant abnormality. Electronically signed by: Khoa Trejo MD (04/14/2018 2:20 PM) [id number]
[2018-04-14 15:00] VITALS: BP 114/70
[2018-04-14 19:00] VITALS: BP 102/63
--- NOTE | 2018-04-14 19:11 | PDOC2 ---
NEUROLOGY CONSULT Date of Admission Date of Admission DATE: 04/14/18 TIME: 18:58 Reason for Consult Reason for Consult: IMPRESSION: Headaches. LE weakness, acute onset. Elevated CPK. Hypokalemia, mild. Cannabinoids positive. RECOMMENDATIONS/PLAN: Brain MRI performed, normal study. L-spine MRI if not improving. LP if not improving. Lab: see orders. Neurontin 100 mg tid. OT/PT. HISTORY OF THE PRESENT ILLNESS: This is a 22-y-old AA female patient admit with generalized weakness overnight and leg pain, sudden onset of weakness, bilateral legs and symmetrical, could walk some with assist last night, and now cannot walk. Leg pain to knees, she reports this is not new, but some tingling and pain to her lower legs.Her UE are not affected. Cranial nerves are normal. No urinary of bowel dysfunction. NO URI or GI symptoms complained. Past Medical History Cardiovascular: No pertinent hx Pulmonary: No pertinent hx Heme/Onc: No pertinent hx Renal/: No pertinent hx Dermatology: No pertinent hx Family History Non contributory. Social History Smoke: No ALCOHOL: none Drugs: Marijuana PAST SURGERY HISTORY: No major surgery recently. ALLERGY: Unknown MEDICATIONS: Refer to MAR REVIEW OF SYSTEMS: Constitutional: No malnutrition, weight loss, cachexia. Head: No traumatic brain or head injury. Skin: No edema, or rash. Ear: No infection. Eyes: No vision loss or color blindness. Nose: No bleeding or purulent discharges. Hearing: No hearing decrease. Neck: No injury. Breast: No history of cancer, masses,or discharges. Cardiac: No DC, arrhythmia. Pulmonary: No pneumonia, COPD. GI: No GI ulcer, GI bleeding. Urinary/genital: UTI. Endocrinologic: No cousin face, craniofacial dysmorphism, polydactyly, goiter. Skeletomuscular: No muscular atrophy, deformity. Neurological: see HP. Psychiatric: Marijuana use/abuse. Otherwise, not -urfsn review of systems. PHYSICAL EXAMINATION: General appearance is in subacute distress. HEENT: Normocephalic and nontraumatic. Eyes, nose, ears, and throat are unremarkable. Neck is supple. No lymphadenopathy. No bruits are heard over the carotid artery. No crepitus. Cardiovascular: S1, S2, regular rate and rhythm. Pulmonary: Clear to auscultation bilaterally. Abdomen: Bowel sounds are positive. Abdomen is soft, nontender, and nondistended. Extremities: No rash, lesions, or edema. No restriction of range of motion NEUROLOGICAL EXAMINATION: Alert Oriented to time, place and person. PERRL. EOMI. CN: no focal findings. Muscle tone: within normal. Muscle strength: 5 UE, 3+ LE. DTR: 2 UE, at knee, and ankles. Plantar reflex: Flexor response bilaterally Gait: not examined in chair. Sensory exam: no abnormal findings. No cerebellar signs elicited. F-T-N test fine. Current Medications Current Medications Current Medications Sodium Chloride 1,000 ml @ 1,000 mls/hr 1X ONCE IV Last administered on at 19:44; Start 04/13/18 at 18:45; Stop 04/13/18 at 19:44; Status DC Dexamethasone Sodium Phosphate (Decadron) 10 mg 1X ONCE IV Last administered on 04/13/18at 19:56; Start 04/13/18 at 19:00; Stop 04/13/18 at 19:01; Status DC Metoclopramide HCl (Reglan Vial) 10 mg 1X ONCE IV Last administered on at 19:54; Start 04/13/18 at 19:00; Stop 04/13/18 at 19:01; Status DC Diphenhydramine HCl (Benadryl) 25 mg 1X ONCE IVP Last administered on at 19:53; Start 04/13/18 at 19:00; Stop 04/13/18 at 19:01; Status DC Sodium Chloride 1,000 ml @ 1,000 mls/hr 1X ONCE IV Last administered on at 20:52; Start 04/13/18 at 20:45; Stop 04/13/18 at 21:44; Status DC Ondansetron HCl (Zofran) 4 mg PRN Q8HRS PRN IV NAUSEA/VOMITING; Start 04/13/18 at 20:45; Stop 04/14/18 at 20:44 Acetaminophen (Tylenol) 650 mg PRN Q4HRS PRN PO FEVER; Start 04/13/18 at 20:45 ; Stop 04/14/18 at 20:44 Potassium Chloride (Klor-Con) 40 meq 1X ONCE PO Last administered on at 10:14; Start 04/14/18 at 08:15; Stop 04/14/18 at 08:16; Status DC Sodium Chloride 1,000 ml @ 125 mls/hr Q8H IV Last administered on 04/14/18at 10 :15; Start 04/14/18 at 08:30 Enoxaparin Sodium (Lovenox Per Pharmacy Prophylaxis Dosing) 1 each PRN DAILY PRN MC SEE COMMENTS; Start 04/15/18 at 08:45 Enoxaparin Sodium (Lovenox 40mg Syringe) 40 mg Q24H SQ ; Start 04/14/18 at 11:00 Gadobutrol (Gadavist) 4 mmol 1X ONCE IV Last administered on 04/14/18at 13:21; Start 04/14/18 at 12:45; Stop 04/14/18 at 12:47; Status DC Active Scripts Active Allergies Allergies: Allergies Coded Allergies Type Severity Reaction Last Updated Verified No Known Drug Allergies 10/25/16 No ROS Review of System The patient denies any associated fevers, chills, headache, ear pain, rhinorrhea , sore throat, stiff neck, productive cough, chest pain, shortness of breath, back or flank pain, abdominal pain, nausea, vomiting, diarrhea, constipation, dysuria, rash, numbness, weakness, tingling, incontinence, difficulty ambulating, or diaphoresis. Physical Exam Physical Exam General: Well developed, well nourished, no acute distress, well appearing HEENT: Pupils equally round and reactive to light, EOMI, no discharge, normal conjunctiva Neck: Supple, no nuchal rigidity, no JVD, trachea midline, no tenderness Cardiac: RRR, no murmurs, no gallops, no rubs Chest/Lungs: CTAB, no wheeze, no rhonchi, no crackles Abdomen: soft, non-distended, no guarding, no peritoneal signs, non-tender Back: No tenderness Extremities: no edema, pulses intact, non-tender,capillary refill <3 sec bilateral upper and lower extremities, Neuro: Alert and oriented x 4, no focal deficits, normal speech Vitals Vitals: Vital Signs Date Time Temp Pulse Resp B/P (MAP) Pulse Ox O2 Delivery O2 Flow Rate FiO2 04/14/18 15:00 97.3 81 17 114/70 (85) 100 Room Air 97.3 Labs Labs Laboratory Tests Test 04/13/18 19:05 04/13/18 19:45 04/13/18 20:00 04/14/18 08:38 White Blood Count 7.8 x10^3/uL (4.0-11.0) Red Blood Count 4.41 x10^6/uL (3.50-5.40) Hemoglobin 10.4 g/dL (12.0-15.5) Hematocrit 32.3 % (36.0-47.0) Mean Corpuscular Volume 73 fL (79-100) Mean Corpuscular Hemoglobin 24 pg (25-35) Mean Corpuscular Hemoglobin Concent 32 g/dL (31-37) Red Cell Distribution Width 21.9 % (11.5-14.5) Platelet Count 199 x10^3/uL (140-400) Neutrophils (%) (Auto) 72 % (31-73) Lymphocytes (%) (Auto) 22 % (24-48) Monocytes (%) (Auto) 6 % (0-9) Eosinophils (%) (Auto) 0 % (0-3) Basophils (%) (Auto) 0 % (0-3) Neutrophils # (Auto) 5.6 x10^3uL (1.8-7.7) Lymphocytes # (Auto) 1.7 x10^3/uL (1.0-4.8) Monocytes # (Auto) 0.5 x10^3/uL (0.0-1.1) Eosinophils # (Auto) 0.0 x10^3/uL (0.0-0.7) Basophils # (Auto) 0.0 x10^3/uL (0.0-0.2) Platelet Estimate Adequate (ADEQUATE) Hypochromasia Slight Microcytosis Slight Sodium Level 139 mmol/L (136-145) Potassium Level 3.3 mmol/L (3.5-5.1) Chloride Level 102 mmol/L (98-107) Carbon Dioxide Level 25 mmol/L (21-32) Anion Gap 12 (6-14) Blood Urea Nitrogen 9 mg/dL (7-20) Creatinine 0.7 mg/dL (0.6-1.0) Estimated GFR (Cockcroft-Gault) 127.8 BUN/Creatinine Ratio 13 (6-20) Glucose Level 80 mg/dL (70-99) Calcium Level 9.3 mg/dL (8.5-10.1) Magnesium Level 2.3 mg/dL (1.8-2.4) Total Bilirubin 0.4 mg/dL (0.2-1.0) Aspartate Amino Transf (AST/SGOT) 34 U/L (15-37) Alanine Aminotransferase (ALT/SGPT) 19 U/L (14-59) Alkaline Phosphatase 68 U/L (46-116) Creatine Kinase 1680 U/L (26-192) 1370 U/L (26-192) Troponin I Quantitative < 0.017 ng/mL (0.000-0.055) Total Protein 8.5 g/dL (6.4-8.2) Albumin 4.0 g/dL (3.4-5.0) Albumin/Globulin Ratio 0.9 (1.0-1.7) Ethyl Alcohol Level < 10 mg/dL (0-10) Urine Collection Type Unknown Urine Color Yellow Urine Clarity Clear Urine pH 5.5 Urine Specific [place] >=1.030 Urine Protein 30 mg/dL (NEG-TRACE) Urine Glucose (UA) Negative mg/dL (NEG) Urine Ketones (Stick) 40 mg/dL (NEG) Urine Blood Negative (NEG) Urine Nitrite Negative (NEG) Urine Bilirubin Small (NEG) Urine Urobilinogen Dipstick 1.0 mg/dL (0.2 mg/dL) Urine Leukocyte Esterase Small (NEG) Urine RBC Rare /HPF (0-2) Urine WBC 1-4 /HPF (0-4) Urine Squamous Epithelial Cells Many /LPF Urine Bacteria Few /HPF (0-FEW) Urine Mucus Marked /LPF Urine Opiates Screen Neg (NEG) Urine Methadone Screen Neg (NEG) Urine Barbiturates Neg (NEG) Urine Phencyclidine Screen Neg (NEG) Urine Amphetamine/Methamphetamine Neg (NEG) Urine Benzodiazepines Screen Neg (NEG) Urine Cocaine Screen Neg (NEG) Urine Cannabinoids Screen Pos (NEG) Urine Ethyl Alcohol Neg (NEG) Bedside Urine HCG, Qualitative Hcg negative (Negative) Erythrocyte Sedimentation Rate 13 (0-25) Iron Level 10 ug/dL (50-170) Total Iron Binding Capacity 387 ug/dL (250-450) Iron Saturation 3 % (15-34) C-Reactive Protein, Quantitative 1.5 mg/L (0-3.3) Vitamin B12 Level 457 pg/mL (247-911) HIV (1&2) Antibody Screen Nonreactive (Nonreactive) Laboratory Tests Test 04/13/18 19:05 04/13/18 19:45 04/13/18 20:00 04/14/18 08:38 White Blood Count 7.8 x10^3/uL (4.0-11.0) Red Blood Count 4.41 x10^6/uL (3.50-5.40) Hemoglobin 10.4 g/dL (12.0-15.5) Hematocrit 32.3 % (36.0-47.0) Mean Corpuscular Volume 73 fL (79-100) Mean Corpuscular Hemoglobin 24 pg (25-35) Mean Corpuscular Hemoglobin Concent 32 g/dL (31-37) Red Cell Distribution Width 21.9 % (11.5-14.5) Platelet Count 199 x10^3/uL (140-400) Neutrophils (%) (Auto) 72 % (31-73) Lymphocytes (%) (Auto) 22 % (24-48) Monocytes (%) (Auto) 6 % (0-9) Eosinophils (%) (Auto) 0 % (0-3) Basophils (%) (Auto) 0 % (0-3) Neutrophils # (Auto) 5.6 x10^3uL (1.8-7.7) Lymphocytes # (Auto) 1.7 x10^3/uL (1.0-4.8) Monocytes # (Auto) 0.5 x10^3/uL (0.0-1.1) Eosinophils # (Auto) 0.0 x10^3/uL (0.0-0.7) Basophils # (Auto) 0.0 x10^3/uL (0.0-0.2) Platelet Estimate Adequate (ADEQUATE) Hypochromasia Slight Microcytosis Slight Sodium Level 139 mmol/L (136-145) Potassium Level 3.3 mmol/L (3.5-5.1) Chloride Level 102 mmol/L (98-107) Carbon Dioxide Level 25 mmol/L (21-32) Anion Gap 12 (6-14) Blood Urea Nitrogen 9 mg/dL (7-20) Creatinine 0.7 mg/dL (0.6-1.0) Estimated GFR (Cockcroft-Gault) 127.8 BUN/Creatinine Ratio 13 (6-20) Glucose Level 80 mg/dL (70-99) Calcium Level 9.3 mg/dL (8.5-10.1) Magnesium Level 2.3 mg/dL (1.8-2.4) Total Bilirubin 0.4 mg/dL (0.2-1.0) Aspartate Amino Transf (AST/SGOT) 34 U/L (15-37) Alanine Aminotransferase (ALT/SGPT) 19 U/L (14-59) Alkaline Phosphatase 68 U/L (46-116) Creatine Kinase 1680 U/L (26-192) 1370 U/L (26-192) Troponin I Quantitative < 0.017 ng/mL (0.000-0.055) Total Protein 8.5 g/dL (6.4-8.2) Albumin 4.0 g/dL (3.4-5.0) Albumin/Globulin Ratio 0.9 (1.0-1.7) Ethyl Alcohol Level < 10 mg/dL (0-10) Urine Collection Type Unknown Urine Color Yellow Urine Clarity Clear Urine pH 5.5 Urine Specific [place] >=1.030 Urine Protein 30 mg/dL (NEG-TRACE) Urine Glucose (UA) Negative mg/dL (NEG) Urine Ketones (Stick) 40 mg/dL (NEG) Urine Blood Negative (NEG) Urine Nitrite Negative (NEG) Urine Bilirubin Small (NEG) Urine Urobilinogen Dipstick 1.0 mg/dL (0.2 mg/dL) Urine Leukocyte Esterase Small (NEG) Urine RBC Rare /HPF (0-2) Urine WBC 1-4 /HPF (0-4) Urine Squamous Epithelial Cells Many /LPF Urine Bacteria Few /HPF (0-FEW) Urine Mucus Marked /LPF Urine Opiates Screen Neg (NEG) Urine Methadone Screen Neg (NEG) Urine Barbiturates Neg (NEG) Urine Phencyclidine Screen Neg (NEG) Urine Amphetamine/Methamphetamine Neg (NEG) Urine Benzodiazepines Screen Neg (NEG) Urine Cocaine Screen Neg (NEG) Urine Cannabinoids Screen Pos (NEG) Urine Ethyl Alcohol Neg (NEG) Bedside Urine HCG, Qualitative Hcg negative (Negative) Erythrocyte Sedimentation Rate 13 (0-25) Iron Level 10 ug/dL (50-170) Total Iron Binding Capacity 387 ug/dL (250-450) Iron Saturation 3 % (15-34) C-Reactive Protein, Quantitative 1.5 mg/L (0-3.3) Vitamin B12 Level 457 pg/mL (247-911) HIV (1&2) Antibody Screen Nonreactive (Nonreactive) ELIZABETH FREGOSO MD Apr 14, 2018 19:11
[2018-04-14] MEDS: GABAPENTIN 100 MG CAPSULE. PO SCH (20:47)
--- NOTE | 2018-04-14 20:55 | CONS ---
DATE OF CONSULTATION: 04/14/2018 ATTENDING PHYSICIAN: Dr. Rust. REASON FOR CONSULTATION: The patient was seen at the request of Dr. Rust for rehab evaluation. HISTORY OF PRESENT ILLNESS: This is a 22-year-old right-handed female who takes care of her 3-year-old, 2-year-old and 7-month-old babies. She lives on a third floor apartment with her babies and her boyfriend. The patient had some right knee stiffness since her delivery with the first baby. The patient was admitted through the Emergency Room last evening with complaints of generalized weakness and headache. She was talking to a friend at home when she started feeling weak and lightheaded. Denies any syncopal episode or fall or hitting her head. She felt weakness predominantly in her lower extremities and also severe bilateral throbbing frontal headache since noon of 04/13/2018. She had this kind of headache in the past. She also noted some nausea. The patient does not think she is . The patient this morning admits numbness and weakness and heaviness feeling in her lower extremities. She denies any trouble with her speech or swallowing or upper extremity weakness or numbness. She had MRI scan of the brain done, which failed to reveal any acute abnormality. Lumbar spine MRI scan also failed to reveal any abnormality. CT scan of the brain failed to reveal any abnormality. The patient is anemic, hemoglobin of 10.4. She was noted with serum potassium of 3.3 yesterday. The patient also was noted with serum iron of 10, iron saturation 3, creatinine kinase of 1680 yesterday and 1370 today. Urine was positive for cannabinoids. The patient denies any neck or back pain. She denies any trouble with her bowel or bladder control. PHYSICAL EXAMINATION: Today, revealed a young female. The patient is alert, in no acute distress. She is cooperative during the examination. She had 5/5 grade muscle strength in her upper and lower extremities. Deep tendon reflexes are 1-2+ and symmetrical with maybe 1+ ankle jerks. She had equal perception of touch and pinprick sensation bilaterally. The patient had painful range of motion of cervical, thoracic and lumbar spine and she had some stiffness of her right knee and mild crepitus on range of motion of both knee joints without any obvious knee joint effusion, and she had painful range of motion of both hip and ankle joints. She is independent with bed mobility. She requires supervision assistance with transfers. Once up, she had some difficulty to try to walk. She walked slowly, but in coordination using both lower extremities. Plantar reflex is flexor bilaterally. Her skin is intact at this time. ASSESSMENT: A young female with sudden onset of lower extremity incoordination and heaviness feeling without any back pain. No clinical evidence of any compression neuropathy as she had negative Tinel sign over peroneal nerve at fibular neck. RECOMMENDATIONS: Await Neurology evaluation. She might need a lumbar puncture to make sure she does not have any Guillain-[place] syndrome variant. Agree with the plan for physical therapy and occupational therapy to get her up as tolerated. Dr. Rust, I appreciate asking me to participate in care of this interesting patient. I will be glad to follow her with you as needed for her rehabilitation. PEG CUADRA MD DR: MARIANNE/sy JOB#: [id number] / [id number]
[2018-04-14 23:00] VITALS: BP 112/70
[2018-04-15 03:00] VITALS: BP 106/50
[2018-04-15 07:00] VITALS: BP 110/63
[2018-04-15] MEDS: GABAPENTIN 100 MG CAPSULE. PO SCH ×2 (08:24→14:11)
[2018-04-15] MEDS: IV NORMAL SALINE 1000ML BAG 1,000 ML IV SCH ×2 (08:25→16:30)
[2018-04-15 09:38] LABS: BASO % 1 % (0-3); EOS % 0 % (0-3); HEMATOCRIT 29.9 % (36.0-47.0); HEMOGLOBIN 9.6 g/dL (12.0-15.5); LYMPH # 1.7 x10^3/uL (1.0-4.8); LYMPH % 40 % (24-48); MEAN CORPUSCULAR HEMOGLOBIN 24 pg (25-35); MEAN CORPUSCULAR HGB CONC 32 g/dL (31-37); MEAN CORPUSCULAR VOLUME 74 fL (79-100); MONO # 0.3 x10^3/uL (0.0-1.1); MONO % 8 % (0-9); NEUT # 2.2 x10^3uL (1.8-7.7); NEUT % 52 % (31-73); PLATELET COUNT 147 x10^3/uL (140-400); RED BLOOD COUNT 4.02 x10^6/uL (3.50-5.40); RED CELL DISTRIBUTION WIDTH 22.5 % (11.5-14.5); WHITE BLOOD COUNT 4.2 x10^3/uL (4.0-11.0)
[2018-04-15 10:00] LABS: ALBUMIN 3.2 g/dL (3.4-5.0); ALBUMIN/GLOBULIN RATIO 0.9 (1.0-1.7); CALCIUM 8.2 mg/dL (8.5-10.1); CREATININE 0.7 mg/dL (0.6-1.0); GFR 127.8; POTASSIUM 3.3 mmol/L (3.5-5.1); TOTAL BILIRUBIN 0.4 mg/dL (0.2-1.0); TOTAL PROTEIN 6.9 g/dL (6.4-8.2)
[2018-04-15 11:00] VITALS: BP 100/71
[2018-04-15] MEDS: ENOXAPARIN 40 MG/0.4 ML SYRINGE. SQ SCH (11:12)
[2018-04-15] MEDS ORDERED: IRON SUCROSE COMPLEX 200 MG in IV NORMAL SALINE 100ML 100 ML IV ONE (13:00)
[2018-04-15] MEDS ORDERED: VITAMIN B12,B9,B6 COMPLEX 1 TABLET. PO SCH (13:00)
[2018-04-15] MEDS ORDERED: CYANOCOBALAMIN (VITAMIN B-12) 1,000 MCG/ML VIAL IM ONE (13:00)
[2018-04-15] MEDS ORDERED: POTASSIUM CHLORIDE 20 MEQ TABLET.ER. PO ONE (13:00)
[2018-04-15] MEDS ORDERED: CYAN1TAB19 PO (13:02)
[2018-04-15] MEDS ORDERED: GABA-586 PO (13:02)
[2018-04-15] MEDS ORDERED: FERR325T14 PO (13:02)
--- NOTE | 2018-04-15 13:04 | PDOC ---
PROGRESS NOTES Subjective Subjective She feels better. Objective Objective Vital Signs Date Time Temp Pulse Resp B/P (MAP) Pulse Ox O2 Delivery O2 Flow Rate FiO2 04/15/18 11:00 98.2 84 16 100/71 (81) 95 Room Air 98.2 Intake and Output 04/15/18 07:00 Intake Total 2500 ml Balance 2500 ml Intake Oral 1500 ml IV Total 1000 ml # Voids 3 Physical Exam Physical Exam She got up with roller walker but continues with difficulty walking. Assessment Assessment Problems Medical Problems: (1) Bilateral leg weakness Status: Acute (2) Elevated creatine kinase Status: Acute (3) Headache Status: Acute Plan Plan of Care I spoke to about lumbar puncture for CSF studies and to continue prsent physical and occupational therapy and she had 3 flights of stairs to manage to return home. Comment Review of Relevant I have reviewed the following items kyle (where applicable) has been applied. Labs Laboratory Tests Test 04/13/18 19:05 04/13/18 19:45 04/13/18 20:00 04/14/18 08:38 White Blood Count 7.8 x10^3/uL (4.0-11.0) Red Blood Count 4.41 x10^6/uL (3.50-5.40) Hemoglobin 10.4 g/dL (12.0-15.5) Hematocrit 32.3 % (36.0-47.0) Mean Corpuscular Volume 73 fL (79-100) Mean Corpuscular Hemoglobin 24 pg (25-35) Mean Corpuscular Hemoglobin Concent 32 g/dL (31-37) Red Cell Distribution Width 21.9 % (11.5-14.5) Platelet Count 199 x10^3/uL (140-400) Neutrophils (%) (Auto) 72 % (31-73) Lymphocytes (%) (Auto) 22 % (24-48) Monocytes (%) (Auto) 6 % (0-9) Eosinophils (%) (Auto) 0 % (0-3) Basophils (%) (Auto) 0 % (0-3) Neutrophils # (Auto) 5.6 x10^3uL (1.8-7.7) Lymphocytes # (Auto) 1.7 x10^3/uL (1.0-4.8) Monocytes # (Auto) 0.5 x10^3/uL (0.0-1.1) Eosinophils # (Auto) 0.0 x10^3/uL (0.0-0.7) Basophils # (Auto) 0.0 x10^3/uL (0.0-0.2) Platelet Estimate Adequate (ADEQUATE) Hypochromasia Slight Microcytosis Slight Sodium Level 139 mmol/L (136-145) Potassium Level 3.3 mmol/L (3.5-5.1) Chloride Level 102 mmol/L (98-107) Carbon Dioxide Level 25 mmol/L (21-32) Anion Gap 12 (6-14) Blood Urea Nitrogen 9 mg/dL (7-20) Creatinine 0.7 mg/dL (0.6-1.0) Estimated GFR (Cockcroft-Gault) 127.8 BUN/Creatinine Ratio 13 (6-20) Glucose Level 80 mg/dL (70-99) Calcium Level 9.3 mg/dL (8.5-10.1) Magnesium Level 2.3 mg/dL (1.8-2.4) Total Bilirubin 0.4 mg/dL (0.2-1.0) Aspartate Amino Transf (AST/SGOT) 34 U/L (15-37) Alanine Aminotransferase (ALT/SGPT) 19 U/L (14-59) Alkaline Phosphatase 68 U/L (46-116) Creatine Kinase 1680 U/L (26-192) 1370 U/L (26-192) Troponin I Quantitative < 0.017 ng/mL (0.000-0.055) Total Protein 8.5 g/dL (6.4-8.2) Albumin 4.0 g/dL (3.4-5.0) Albumin/Globulin Ratio 0.9 (1.0-1.7) Ethyl Alcohol Level < 10 mg/dL (0-10) Urine Collection Type Unknown Urine Color Yellow Urine Clarity Clear Urine pH 5.5 Urine Specific Fork >=1.030 Urine Protein 30 mg/dL (NEG-TRACE) Urine Glucose (UA) Negative mg/dL (NEG) Urine Ketones (Stick) 40 mg/dL (NEG) Urine Blood Negative (NEG) Urine Nitrite Negative (NEG) Urine Bilirubin Small (NEG) Urine Urobilinogen Dipstick 1.0 mg/dL (0.2 mg/dL) Urine Leukocyte Esterase Small (NEG) Urine RBC Rare /HPF (0-2) Urine WBC 1-4 /HPF (0-4) Urine Squamous Epithelial Cells Many /LPF Urine Bacteria Few /HPF (0-FEW) Urine Mucus Marked /LPF Urine Opiates Screen Neg (NEG) Urine Methadone Screen Neg (NEG) Urine Barbiturates Neg (NEG) Urine Phencyclidine Screen Neg (NEG) Urine Amphetamine/Methamphetamine Neg (NEG) Urine Benzodiazepines Screen Neg (NEG) Urine Cocaine Screen Neg (NEG) Urine Cannabinoids Screen Pos (NEG) Urine Ethyl Alcohol Neg (NEG) Bedside Urine HCG, Qualitative Hcg negative (Negative) Erythrocyte Sedimentation Rate 13 (0-25) Iron Level 10 ug/dL (50-170) Total Iron Binding Capacity 387 ug/dL (250-450) Iron Saturation 3 % (15-34) C-Reactive Protein, Quantitative 1.5 mg/L (0-3.3) Vitamin B12 Level 457 pg/mL (247-911) HIV (1&2) Antibody Screen Nonreactive (Nonreactive) Test 04/15/18 08:50 White Blood Count 4.2 x10^3/uL (4.0-11.0) Red Blood Count 4.02 x10^6/uL (3.50-5.40) Hemoglobin 9.6 g/dL (12.0-15.5) Hematocrit 29.9 % (36.0-47.0) Mean Corpuscular Volume 74 fL (79-100) Mean Corpuscular Hemoglobin 24 pg (25-35) Mean Corpuscular Hemoglobin Concent 32 g/dL (31-37) Red Cell Distribution Width 22.5 % (11.5-14.5) Platelet Count 147 x10^3/uL (140-400) Neutrophils (%) (Auto) 52 % (31-73) Lymphocytes (%) (Auto) 40 % (24-48) Monocytes (%) (Auto) 8 % (0-9) Eosinophils (%) (Auto) 0 % (0-3) Basophils (%) (Auto) 1 % (0-3) Neutrophils # (Auto) 2.2 x10^3uL (1.8-7.7) Lymphocytes # (Auto) 1.7 x10^3/uL (1.0-4.8) Monocytes # (Auto) 0.3 x10^3/uL (0.0-1.1) Eosinophils # (Auto) 0.0 x10^3/uL (0.0-0.7) Basophils # (Auto) 0.0 x10^3/uL (0.0-0.2) Sodium Level 141 mmol/L (136-145) Potassium Level 3.3 mmol/L (3.5-5.1) Chloride Level 107 mmol/L (98-107) Carbon Dioxide Level 24 mmol/L (21-32) Anion Gap 10 (6-14) Blood Urea Nitrogen 6 mg/dL (7-20) Creatinine 0.7 mg/dL (0.6-1.0) Estimated GFR (Cockcroft-Gault) 127.8 BUN/Creatinine Ratio 9 (6-20) Glucose Level 81 mg/dL (70-99) Calcium Level 8.2 mg/dL (8.5-10.1) Total Bilirubin 0.4 mg/dL (0.2-1.0) Aspartate Amino Transf (AST/SGOT) 29 U/L (15-37) Alanine Aminotransferase (ALT/SGPT) 21 U/L (14-59) Alkaline Phosphatase 59 U/L (46-116) Creatine Kinase 611 U/L (26-192) Total Protein 6.9 g/dL (6.4-8.2) Albumin 3.2 g/dL (3.4-5.0) Albumin/Globulin Ratio 0.9 (1.0-1.7) Thyroid Stimulating Hormone (TSH) 2.123 uIU/mL (0.358-3.74) Laboratory Tests Test 04/15/18 08:50 White Blood Count 4.2 x10^3/uL (4.0-11.0) Red Blood Count 4.02 x10^6/uL (3.50-5.40) Hemoglobin 9.6 g/dL (12.0-15.5) Hematocrit 29.9 % (36.0-47.0) Mean Corpuscular Volume 74 fL (79-100) Mean Corpuscular Hemoglobin 24 pg (25-35) Mean Corpuscular Hemoglobin Concent 32 g/dL (31-37) Red Cell Distribution Width 22.5 % (11.5-14.5) Platelet Count 147 x10^3/uL (140-400) Neutrophils (%) (Auto) 52 % (31-73) Lymphocytes (%) (Auto) 40 % (24-48) Monocytes (%) (Auto) 8 % (0-9) Eosinophils (%) (Auto) 0 % (0-3) Basophils (%) (Auto) 1 % (0-3) Neutrophils # (Auto) 2.2 x10^3uL (1.8-7.7) Lymphocytes # (Auto) 1.7 x10^3/uL (1.0-4.8) Monocytes # (Auto) 0.3 x10^3/uL (0.0-1.1) Eosinophils # (Auto) 0.0 x10^3/uL (0.0-0.7) Basophils # (Auto) 0.0 x10^3/uL (0.0-0.2) Sodium Level 141 mmol/L (136-145) Potassium Level 3.3 mmol/L (3.5-5.1) Chloride Level 107 mmol/L (98-107) Carbon Dioxide Level 24 mmol/L (21-32) Anion Gap 10 (6-14) Blood Urea Nitrogen 6 mg/dL (7-20) Creatinine 0.7 mg/dL (0.6-1.0) Estimated GFR (Cockcroft-Gault) 127.8 BUN/Creatinine Ratio 9 (6-20) Glucose Level 81 mg/dL (70-99) Calcium Level 8.2 mg/dL (8.5-10.1) Total Bilirubin 0.4 mg/dL (0.2-1.0) Aspartate Amino Transf (AST/SGOT) 29 U/L (15-37) Alanine Aminotransferase (ALT/SGPT) 21 U/L (14-59) Alkaline Phosphatase 59 U/L (46-116) Creatine Kinase 611 U/L (26-192) Total Protein 6.9 g/dL (6.4-8.2) Albumin 3.2 g/dL (3.4-5.0) Albumin/Globulin Ratio 0.9 (1.0-1.7) Thyroid Stimulating Hormone (TSH) 2.123 uIU/mL (0.358-3.74) Medications Current Medications Sodium Chloride 1,000 ml @ 1,000 mls/hr 1X ONCE IV Last administered on at 19:44; Start 04/13/18 at 18:45; Stop 04/13/18 at 19:44; Status DC Dexamethasone Sodium Phosphate (Decadron) 10 mg 1X ONCE IV Last administered on 04/13/18at 19:56; Start 04/13/18 at 19:00; Stop 04/13/18 at 19:01; Status DC Metoclopramide HCl (Reglan Vial) 10 mg 1X ONCE IV Last administered on at 19:54; Start 04/13/18 at 19:00; Stop 04/13/18 at 19:01; Status DC Diphenhydramine HCl (Benadryl) 25 mg 1X ONCE IVP Last administered on at 19:53; Start 04/13/18 at 19:00; Stop 04/13/18 at 19:01; Status DC Sodium Chloride 1,000 ml @ 1,000 mls/hr 1X ONCE IV Last administered on at 20:52; Start 04/13/18 at 20:45; Stop 04/13/18 at 21:44; Status DC Ondansetron HCl (Zofran) 4 mg PRN Q8HRS PRN IV NAUSEA/VOMITING; Start 04/13/18 at 20:45; Stop 04/14/18 at 20:44; Status DC Acetaminophen (Tylenol) 650 mg PRN Q4HRS PRN PO FEVER; Start 04/13/18 at 20:45 ; Stop 04/14/18 at 20:44; Status DC Potassium Chloride (Klor-Con) 40 meq 1X ONCE PO Last administered on at 10:14; Start 04/14/18 at 08:15; Stop 04/14/18 at 08:16; Status DC Sodium Chloride 1,000 ml @ 125 mls/hr Q8H IV Last administered on 04/15/18at 08 :25; Start 04/14/18 at 08:30 Enoxaparin Sodium (Lovenox Per Pharmacy Prophylaxis Dosing) 1 each PRN DAILY PRN MC SEE COMMENTS; Start 04/15/18 at 08:45 Enoxaparin Sodium (Lovenox 40mg Syringe) 40 mg Q24H SQ Last administered on at 11:12; Start 04/14/18 at 11:00 Gadobutrol (Gadavist) 4 mmol 1X ONCE IV Last administered on 04/14/18at 13:21; Start 04/14/18 at 12:45; Stop 04/14/18 at 12:47; Status DC Gabapentin (Neurontin) 100 mg TID PO Last administered on 04/15/18at 08:24; Start 04/14/18 at 21:00 Iron Sucrose 200 mg/Sodium Chloride 110 ml @ 55 mls/hr 1X ONCE IV ; Start at 13:00; Stop 04/15/18 at 14:59 Vitamin B Complex (Folbic Tablet) 1 tab DAILY PO ; Start 04/15/18 at 13:00 Cyanocobalamin (Vitamin B-12) 1,000 mcg 1X ONCE IM ; Start 04/15/18 at 13:00; Stop 04/15/18 at 13:01; Status DC Potassium Chloride (Klor-Con) 40 meq 1X ONCE PO ; Start 04/15/18 at 13:00; Stop 04/15/18 at 13:01; Status DC Active Scripts Active Vitals/I & O Vital Sign - Last 24 Hours 04/14/18 04/14/18 04/14/18 04/15/18 15:00 19:00 23:00 03:00 Temp 97.3 99.3 98.9 97.7 97.3 99.3 98.9 97.7 Pulse 81 81 85 83 Resp 17 16 18 18 B/P (MAP) 114/70 (85) 102/63 (76) 112/70 (84) 106/50 (68) Pulse Ox 100 98 97 98 O2 Delivery Room Air Room Air Room Air Room Air 04/15/18 04/15/18 04/15/18 07:00 08:27 11:00 Temp 98.3 98.2 98.3 98.2 Pulse 69 84 Resp 16 16 B/P (MAP) 110/63 (79) 100/71 (81) Pulse Ox 99 95 O2 Delivery Room Air Room Air Room Air Intake and Output 04/14/18 04/14/18 04/15/18 15:00 23:00 07:00 Intake Total 1000 ml 1500 ml Balance 1000 ml 1500 ml PEG CUADRA MD Apr 15, 2018 13:04
--- NOTE | 2018-04-15 13:56 | RAD ---
Bilateral AP views of the knees in the standing position without comparison for right knee stiffness. FINDINGS: There is no fracture, dislocation, or acute osseous abnormality of either knee. Joints and soft tissues are grossly unremarkable. No radiopaque foreign bodies are seen. IMPRESSION: 1. No acute osseous abnormality of either knee. Electronically signed by: Daryl Hutton MD (04/15/2018 1:53 PM) [id number]
[2018-04-15 15:00] VITALS: BP 98/75
[2018-04-15 15:20] VITALS: BP 105/69
--- NOTE | 2018-04-15 18:31 | PDOC ---
PROGRESS NOTES Assessment Assessment Headaches. LE weakness, acute onset. Elevated CPK. Hypokalemia, mild. Cannabinoids positive. RECOMMENDATIONS/PLAN: Brain MRI performed, normal study. L-spine MRI performed no abnormal findings. Patient wanted to go home and LP is considerable. Increase Neurontin to 200 mg tid. OT/PT. HISTORY OF THE PRESENT ILLNESS: This is a 22-y-old AA female patient admit with generalized weakness overnight and leg pain, sudden onset of weakness, bilateral legs and symmetrical, could walk some with assist last night, and now cannot walk. Leg pain to knees, she reports this is not new, but some tingling and pain to her lower legs.Her UE are not affected. Cranial nerves are normal. No urinary of bowel dysfunction. NO URI or GI symptoms complained. Her LE weakness significantly improved on 04/15/18. Past Medical History Cardiovascular: No pertinent hx Pulmonary: No pertinent hx Heme/Onc: No pertinent hx Renal/: No pertinent hx Dermatology: No pertinent hx Family History Non contributory. Social History Smoke: No ALCOHOL: none Drugs: Marijuana PAST SURGERY HISTORY: No major surgery recently. ALLERGY: Unknown MEDICATIONS: Refer to MAR REVIEW OF SYSTEMS: Constitutional: No malnutrition, weight loss, cachexia. Head: No traumatic brain or head injury. Skin: No edema, or rash. Ear: No infection. Eyes: No vision loss or color blindness. Nose: No bleeding or purulent discharges. Hearing: No hearing decrease. Neck: No injury. Breast: No history of cancer, masses,or discharges. Cardiac: No [place], arrhythmia. Pulmonary: No pneumonia, COPD. GI: No GI ulcer, GI bleeding. Urinary/genital: UTI. Endocrinologic: No cousin face, craniofacial dysmorphism, polydactyly, goiter. Skeletomuscular: No muscular atrophy, deformity. Neurological: see HP. Psychiatric: Marijuana use/abuse. Otherwise, not [id number] review of systems. PHYSICAL EXAMINATION: General appearance is in subacute distress. HEENT: Normocephalic and nontraumatic. Eyes, nose, ears, and throat are unremarkable. Neck is supple. No lymphadenopathy. No bruits are heard over the carotid artery. No crepitus. Cardiovascular: S1, S2, regular rate and rhythm. Pulmonary: Clear to auscultation bilaterally. Abdomen: Bowel sounds are positive. Abdomen is soft, nontender, and nondistended. Extremities: No rash, lesions, or edema. No restriction of range of motion NEUROLOGICAL EXAMINATION: Alert Oriented to time, place and person. PERRL. EOMI. CN: no focal findings. Muscle tone: within normal. Muscle strength: 5 UE, 4 to 4+ LE. DTR: 2 UE, at knee, and ankles. Plantar reflex: Flexor response bilaterally Gait: Able to put weight on LE. Sensory exam: no abnormal findings. No cerebellar signs elicited. F-T-N test fine. Objective Objective Vital Signs Date Time Temp Pulse Resp B/P (MAP) Pulse Ox O2 Delivery O2 Flow Rate FiO2 04/15/18 15:20 69 105/69 (81) 04/15/18 15:00 98.1 16 94 Room Air 98.1 Intake and Output 04/15/18 07:00 Intake Total 2500 ml Balance 2500 ml Intake Oral 1500 ml IV Total 1000 ml # Voids 3 Vitals Signs Vitals VS - Last 72 Hours, by Label Date Time Temp Pulse Resp B/P (MAP) Pulse Ox O2 Delivery O2 Flow Rate FiO2 04/15/18 15:20 69 105/69 (81) 04/15/18 15:00 98.1 72 16 98/75 (83) 94 Room Air 98.1 04/15/18 11:00 98.2 84 16 100/71 (81) 95 Room Air 98.2 04/15/18 08:27 Room Air 04/15/18 07:00 98.3 69 16 110/63 (79) 99 Room Air 98.3 04/15/18 03:00 97.7 83 18 106/50 (68) 98 Room Air 97.7 04/14/18 23:00 98.9 85 18 112/70 (84) 97 Room Air 98.9 04/14/18 19:00 99.3 81 16 102/63 (76) 98 Room Air 99.3 04/14/18 15:00 97.3 81 17 114/70 (85) 100 Room Air 97.3 04/14/18 11:00 97.9 85 18 95/59 (71) 98 Room Air 97.9 04/14/18 08:00 Room Air 04/14/18 07:00 98.4 119 18 109/66 (80) 100 Room Air 98.4 Laboratory Laboratory Laboratory Tests Test 04/15/18 08:50 White Blood Count 4.2 x10^3/uL (4.0-11.0) Red Blood Count 4.02 x10^6/uL (3.50-5.40) Hemoglobin 9.6 g/dL (12.0-15.5) Hematocrit 29.9 % (36.0-47.0) Mean Corpuscular Volume 74 fL (79-100) Mean Corpuscular Hemoglobin 24 pg (25-35) Mean Corpuscular Hemoglobin Concent 32 g/dL (31-37) Red Cell Distribution Width 22.5 % (11.5-14.5) Platelet Count 147 x10^3/uL (140-400) Neutrophils (%) (Auto) 52 % (31-73) Lymphocytes (%) (Auto) 40 % (24-48) Monocytes (%) (Auto) 8 % (0-9) Eosinophils (%) (Auto) 0 % (0-3) Basophils (%) (Auto) 1 % (0-3) Neutrophils # (Auto) 2.2 x10^3uL (1.8-7.7) Lymphocytes # (Auto) 1.7 x10^3/uL (1.0-4.8) Monocytes # (Auto) 0.3 x10^3/uL (0.0-1.1) Eosinophils # (Auto) 0.0 x10^3/uL (0.0-0.7) Basophils # (Auto) 0.0 x10^3/uL (0.0-0.2) Sodium Level 141 mmol/L (136-145) Potassium Level 3.3 mmol/L (3.5-5.1) Chloride Level 107 mmol/L (98-107) Carbon Dioxide Level 24 mmol/L (21-32) Anion Gap 10 (6-14) Blood Urea Nitrogen 6 mg/dL (7-20) Creatinine 0.7 mg/dL (0.6-1.0) Estimated GFR (Cockcroft-Gault) 127.8 BUN/Creatinine Ratio 9 (6-20) Glucose Level 81 mg/dL (70-99) Calcium Level 8.2 mg/dL (8.5-10.1) Total Bilirubin 0.4 mg/dL (0.2-1.0) Aspartate Amino Transf (AST/SGOT) 29 U/L (15-37) Alanine Aminotransferase (ALT/SGPT) 21 U/L (14-59) Alkaline Phosphatase 59 U/L (46-116) Creatine Kinase 611 U/L (26-192) Total Protein 6.9 g/dL (6.4-8.2) Albumin 3.2 g/dL (3.4-5.0) Albumin/Globulin Ratio 0.9 (1.0-1.7) Thyroid Stimulating Hormone (TSH) 2.123 uIU/mL (0.358-3.74) Medication Medications Current Medications Cyanocobalamin (Vitamin B-12) 1,000 mcg 1X ONCE IM Last administered on at 14:09; Start 04/15/18 at 13:00; Stop 04/15/18 at 13:01; Status DC Enoxaparin Sodium (Lovenox Per Pharmacy Prophylaxis Dosing) 1 each PRN DAILY PRN MC SEE COMMENTS; Start 04/15/18 at 08:45; Stop 04/15/18 at 18:18; Status DC Gabapentin (Neurontin) 100 mg TID PO Last administered on 04/15/18at 14:11; Start 04/14/18 at 21:00; Stop 04/15/18 at 18:18; Status DC Iron Sucrose 200 mg/Sodium Chloride 110 ml @ 55 mls/hr 1X ONCE IV Last administered on 04/15/18at 14:10; Start 04/15/18 at 13:00; Stop 04/15/18 at 14:59 ; Status DC Potassium Chloride (Klor-Con) 40 meq 1X ONCE PO Last administered on at 14:11; Start 04/15/18 at 13:00; Stop 04/15/18 at 13:01; Status DC Vitamin B Complex (Folbic Tablet) 1 tab DAILY PO Last administered on at 14:10; Start 04/15/18 at 13:00; Stop 04/15/18 at 18:18; Status DC Comment Review of Relevant I have reviewed the following items kyle (where applicable) has been applied. ELIZABETH FREGOSO MD Apr 15, 2018 18:31
--- NOTE | 2018-04-15 19:49 | PDOC3 ---
Discharge Summary Visit Information Date of Admission: Apr 13, 2018 Date of Discharge: Apr 15, 2018 Admitting Diagnosis: leg weakness and tingling Final Diagnosis Headache LE weakness, acute onset. improved rapidly, NOS myopathy, Elevated CPK. Hypokalemia, Cannabinoids positive. Problems Medical Problems: (1) Bilateral leg weakness Status: Acute (2) Elevated creatine kinase Status: Acute (3) Headache Status: Acute Brief Hospital Course Allergies Allergies Coded Allergies Type Severity Reaction Last Updated Verified No Known Drug Allergies 10/25/16 No Vital Signs Vital Signs Date Time Temp Pulse Resp B/P (MAP) Pulse Ox O2 Delivery O2 Flow Rate FiO2 04/15/18 15:20 69 105/69 (81) 04/15/18 15:00 98.1 16 94 Room Air 98.1 Lab Results Laboratory Tests Test 04/13/18 20:00 04/14/18 08:38 04/15/18 08:50 Bedside Urine HCG, Qualitative Hcg negative (Negative) Erythrocyte Sedimentation Rate 13 (0-25) Iron Level 10 ug/dL (50-170) Total Iron Binding Capacity 387 ug/dL (250-450) Iron Saturation 3 % (15-34) Creatine Kinase 1370 U/L (26-192) 611 U/L (26-192) C-Reactive Protein, Quantitative 1.5 mg/L (0-3.3) Vitamin B12 Level 457 pg/mL (247-911) HIV (1&2) Antibody Screen Nonreactive (Nonreactive) White Blood Count 4.2 x10^3/uL (4.0-11.0) Red Blood Count 4.02 x10^6/uL (3.50-5.40) Hemoglobin 9.6 g/dL (12.0-15.5) Hematocrit 29.9 % (36.0-47.0) Mean Corpuscular Volume 74 fL (79-100) Mean Corpuscular Hemoglobin 24 pg (25-35) Mean Corpuscular Hemoglobin Concent 32 g/dL (31-37) Red Cell Distribution Width 22.5 % (11.5-14.5) Platelet Count 147 x10^3/uL (140-400) Neutrophils (%) (Auto) 52 % (31-73) Lymphocytes (%) (Auto) 40 % (24-48) Monocytes (%) (Auto) 8 % (0-9) Eosinophils (%) (Auto) 0 % (0-3) Basophils (%) (Auto) 1 % (0-3) Neutrophils # (Auto) 2.2 x10^3uL (1.8-7.7) Lymphocytes # (Auto) 1.7 x10^3/uL (1.0-4.8) Monocytes # (Auto) 0.3 x10^3/uL (0.0-1.1) Eosinophils # (Auto) 0.0 x10^3/uL (0.0-0.7) Basophils # (Auto) 0.0 x10^3/uL (0.0-0.2) Sodium Level 141 mmol/L (136-145) Potassium Level 3.3 mmol/L (3.5-5.1) Chloride Level 107 mmol/L (98-107) Carbon Dioxide Level 24 mmol/L (21-32) Anion Gap 10 (6-14) Blood Urea Nitrogen 6 mg/dL (7-20) Creatinine 0.7 mg/dL (0.6-1.0) Estimated GFR (Cockcroft-Gault) 127.8 BUN/Creatinine Ratio 9 (6-20) Glucose Level 81 mg/dL (70-99) Calcium Level 8.2 mg/dL (8.5-10.1) Total Bilirubin 0.4 mg/dL (0.2-1.0) Aspartate Amino Transf (AST/SGOT) 29 U/L (15-37) Alanine Aminotransferase (ALT/SGPT) 21 U/L (14-59) Alkaline Phosphatase 59 U/L (46-116) Total Protein 6.9 g/dL (6.4-8.2) Albumin 3.2 g/dL (3.4-5.0) Albumin/Globulin Ratio 0.9 (1.0-1.7) Thyroid Stimulating Hormone (TSH) 2.123 uIU/mL (0.358-3.74) Laboratory Tests Test 04/15/18 08:50 White Blood Count 4.2 x10^3/uL (4.0-11.0) Red Blood Count 4.02 x10^6/uL (3.50-5.40) Hemoglobin 9.6 g/dL (12.0-15.5) Hematocrit 29.9 % (36.0-47.0) Mean Corpuscular Volume 74 fL (79-100) Mean Corpuscular Hemoglobin 24 pg (25-35) Mean Corpuscular Hemoglobin Concent 32 g/dL (31-37) Red Cell Distribution Width 22.5 % (11.5-14.5) Platelet Count 147 x10^3/uL (140-400) Neutrophils (%) (Auto) 52 % (31-73) Lymphocytes (%) (Auto) 40 % (24-48) Monocytes (%) (Auto) 8 % (0-9) Eosinophils (%) (Auto) 0 % (0-3) Basophils (%) (Auto) 1 % (0-3) Neutrophils # (Auto) 2.2 x10^3uL (1.8-7.7) Lymphocytes # (Auto) 1.7 x10^3/uL (1.0-4.8) Monocytes # (Auto) 0.3 x10^3/uL (0.0-1.1) Eosinophils # (Auto) 0.0 x10^3/uL (0.0-0.7) Basophils # (Auto) 0.0 x10^3/uL (0.0-0.2) Sodium Level 141 mmol/L (136-145) Potassium Level 3.3 mmol/L (3.5-5.1) Chloride Level 107 mmol/L (98-107) Carbon Dioxide Level 24 mmol/L (21-32) Anion Gap 10 (6-14) Blood Urea Nitrogen 6 mg/dL (7-20) Creatinine 0.7 mg/dL (0.6-1.0) Estimated GFR (Cockcroft-Gault) 127.8 BUN/Creatinine Ratio 9 (6-20) Glucose Level 81 mg/dL (70-99) Calcium Level 8.2 mg/dL (8.5-10.1) Total Bilirubin 0.4 mg/dL (0.2-1.0) Aspartate Amino Transf (AST/SGOT) 29 U/L (15-37) Alanine Aminotransferase (ALT/SGPT) 21 U/L (14-59) Alkaline Phosphatase 59 U/L (46-116) Creatine Kinase 611 U/L (26-192) Total Protein 6.9 g/dL (6.4-8.2) Albumin 3.2 g/dL (3.4-5.0) Albumin/Globulin Ratio 0.9 (1.0-1.7) Thyroid Stimulating Hormone (TSH) 2.123 uIU/mL (0.358-3.74) Brief Hospital Course Ms. Valadez is a 22 year old female admit with generalized weakness overnight and leg pain, sudden onset of weakness, bilateral legs and symmetrical, could walk some with assist last night, and now cannot get out of bed. had difficulty initiating transfer. Leg pain to knees, sudden onset weakness, but then markedly improved the next day MRI brain adn L spine neg, normal, pt refused LP, and symptoms of weakness and pain markedly improved, she req. DC home, instructd to return if anything worsens Discharge Information Condition at Discharge: Improved Follow Up: Weeks Disposition/Orders: D/C to Home Scheduled Cyanocobalamin/Fa/Pyridoxine (Folbic Tablet) 1 Each Tablet, 1 TAB PO DAILY, #100 Prescribed by: MATTHIEU KO on 04/15/18 1302 Ferrous Sulfate (Ferrous Sulfate) 325 Mg Tablet, 1 TAB PO DAILY, #30 Ref 1 Prescribed by: MATTHIEU KO on 04/15/18 1302 Gabapentin (Gabapentin) 300 Mg Capsule, 300 MG PO BID, #60 Prescribed by: MATTHIEU OK on 04/15/18 1302 MATTHIEU KO MD Apr 15, 2018 19:49
[2018-04-18 15:24] LABS: ANA INTERP Negative (.)
== END 2018-04-15 18:00 | disposition home or self-care (01) | DRG 93 ==
LOC: ER 18:33 → 5 SOUTH 20:38
PROVIDERS: ADMIT Internal Medicine; ATTEND Internal Medicine
DX: G72.9 Myopathy, unspecified (principal); R51 Headache; D64.9 Anemia, unspecified; E87.6 Hypokalemia; G62.9 Polyneuropathy, unspecified; F12.90 Cannabis use, unspecified, uncomplicated; Z53.29 Procedure and treatment not carried out because of patient's decision for other reasons; R74.8 Abnormal levels of other serum enzymes; M25.661 Stiffness of right knee, not elsewhere classified; Z79.899 Other long term (current) drug therapy
CPT/HCPCS: 36415; 70450; 70553; 72158; 73565; 80053; 80307; 81001; 81025; 82550; 82607; 83540; 83550; 83735; 84425; 84443; 84484; 85025; 85651; 86038; 86140; 86644; 86645; 86703; 87086; 93005; A9585; G0480; J1100; J1200; J1650; J1756; J2765; J3420; J7030; 97530; G0479